=== PATIENT | female | born 1995 | race Caucasian/White ===

== ENCOUNTER 2018-01-01 16:34 | Emergency (ER) | payer BC, OTHER ==
[2018-01-01 16:49] VITALS: BP 125/83
--- NOTE | 2018-01-01 17:09 | EDPHY ---
H & P Time Seen by Provider: 01/01/18 16:59 HPI/ROS: CHIEF COMPLAINT: Headache after head injury HISTORY OF PRESENT ILLNESS: Patient is a 22-year-old female with no significant past medical history who states that 3 days ago she was working underneath a cabinet and accidentally stood up quickly and hit her head on a [place] cabinet striking the forehead area. There was no loss of consciousness but she felt dizzy at the time. She has felt nauseous and threw up once today. She denies any blurry vision or neck pain or any paresthesias in her upper extremities. Over the last 2 days she developed a worsening headache in the last 2 nights she had a difficult time sleeping because the headache woke her in the middle the night. She has tried Tylenol for headache but no other medications. She takes no prescribed medication. ROS As detailed in HPI Smoking Status: Never smoked Physical Exam: General: Alert and oriented. Nontoxic appearing. No acute distress HEENT: Pupils PERRLA. No oral lesions. Head: No raccoon eyes, no Phillips signs no hemotympanum, no scalp hematoma Cardiopulmonary: Regular rate and rhythm. No lower extremity edema Skin: [place] warm and dry. No lesions. Muscle skeletal: Moving all 4 extremities. Equal strength in upper extremities and lower extremities. Ambulatory. Constitutional: Initial Vital Signs Temperature (C) 37.1 C 01/01/18 16:46 Heart Rate 84 01/01/18 16:46 Respiratory Rate 18 01/01/18 16:46 Blood Pressure 125/83 H 01/01/18 16:46 O2 Sat (%) 98 01/01/18 16:46 O2 Delivery Mode Room Air Allergies/Adverse Reactions: No Known Allergies Allergy (Verified 01/01/18 16:46) Home Medications: Medication Instructions Recorded Ethinyl Estradiol/Drospirenone 1 each PO DAILY 10/19/14 [Vestura 3 mg-0.02 mg Tablet] Medical Decision Making - Diagnostics Imaging Results: Imaging Impressions Head CT 01/01/18 17:08 Impression: 1. Normal CT brain without contrast. 2. No sinusitis. 3. No hemorrhage. 4. No skull fracture. Findings and recommendations discussed with emergency department physician assistant commissioner, Chacho Alexis PA-C at 1752 hours on January 01, 2018. Final report concurs with initial preliminary interpretation. ED Course/Re-evaluation: 22-year-old female here with headache after head injury a few days ago. She did have worsening headache with nausea and vomiting over the last [address] scan was obtained which showed no intracranial bleed or skull fracture. This is likely headache secondary to postconcussive syndrome. We discussed appropriate use of anti-inflammatory such as Motrin 3 times a day. She is nontoxic-appearing and has no focal neurologic deficits on her exam. She is agreeable with plan for follow-up with her primary care physician. Differential Diagnosis: Skull fracture, concussion, intracranial bleed, migraine - Data Points Medications Given: Discontinued Medications Ibuprofen (Motrin) 600 mg PO EDNOW ONE Stop: 01/01/18 17:56 Last Admin: 01/01/18 18:02 Dose: Not Given Departure - Departure Disposition: Home, Routine, Self-Care Clinical Impression: Concussion, Closed head injury Condition: Good Instructions: Concussion (ED) Additional Instructions: CT scan today shows no evidence of a skull fracture or any bleeding your brain. Her headache is result of a closed head injury with concussion. Take Motrin 600 mg 3 times a day as needed for the headache. Her headache is not resolving in the next 2-3 days please follow up with your primary care physician for further treatment and evaluation. Return to the ER for any worsening symptoms. Referrals: NONE *PRIMARY CARE P,. [Primary Care Provider] - As per Instructions
[2018-01-01] MEDS ORDERED: IBUPROFEN 600 MG TAB PO ONE (17:55)
== END 2018-01-01 18:03 | disposition home or self-care (01) ==
DX: S06.0X0A Concussion without loss of consciousness, initial encounter (principal); S09.90XA Unspecified injury of head, initial encounter; W22.8XXA Striking against or struck by other objects, initial encounter; Y92.9 Unspecified place or not applicable; Y93.9 Activity, unspecified; Y99.9 Unspecified external cause status